=== PATIENT | male | born 1960 ===

== ENCOUNTER → 2020-11-03 14:43 | Outpatient (REF) | payer OTHER, SELFPAY | LOC: ANHLAB 14:43 | PROVIDERS: PCP Internal Medicine Geriatric Medicine; Visit Provider Nurse Practitioner | DX: C44.311 Basal cell carcinoma of skin of nose (principal) | CPT/HCPCS: 88305 ==

== ENCOUNTER → 2021-01-11 09:54 | Outpatient (REF) | payer OTHER, SELFPAY | LOC: ANHLAB 09:54 | PROVIDERS: PCP Internal Medicine Geriatric Medicine; Visit Provider Nurse Practitioner | DX: C44.311 Basal cell carcinoma of skin of nose (principal) | CPT/HCPCS: 88305; 88331 ==